=== PATIENT | male | born 1955 | race Caucasian/White ===

== ENCOUNTER 2019-04-09 07:45 | Outpatient (RCR) | payer OTHER | END 2019-04-11 | LOC: M PT 07:45 | PROVIDERS: ATTEND Internal Medicine | DX: Z51.89 Encounter for other specified aftercare (principal); M25.561 Pain in right knee ==

== ENCOUNTER → 2021-05-12 | Outpatient (CLI) | payer MEDICARE ==
[~2021-05-12] MED LIST: ALLO100T PO; AMLO1TAB24 PO; ASPI81CH33 PO; D31000TA2 PO; LISI40TA4 PO; ROSU10TA6 PO; TEST1GEL10 TD; TRAM50TA2 PO
== END ==
LOC: M LABSMTC 09:13
PROVIDERS: ATTEND Anesthesiology
DX: Z01.818 Encounter for other preprocedural examination (principal); Z11.52 Encounter for screening for COVID-19

== ENCOUNTER 2021-05-17 08:28 | Day surgery (SDC) | payer OTHER ==
[~2021-05-17] VITALS: Ht 177.8 cm; Wt 89.8 kg
[~2021-05-17 08:28] MED LIST changes: +NS 1,000 ML IV ONE
[2021-05-17] MEDS ORDERED: propofoL 200 MG/20 ML VIAL As Ordered ONE ×3 (10:03→10:52)
--- NOTE | 2021-05-17 11:15 | ROOR ---
Patient Name: Cory Shelby Procedure Date: 05/17/2021 10:16 AM Date of : 1955 Age: 66 Room: [facility] Gender: Male Note Status: Finalized Procedure: Colonoscopy Indications: High risk colon cancer surveillance: Personal history of colonic polyps Providers: Ramiro Varner MD Referring MD: Bunny Johnson MD Requesting Provider: Medicines: Monitored Anesthesia Care Complications: No immediate complications. Procedure: Pre-Anesthesia Assessment: - Prior to the procedure, a History and Physical was performed, and patient medications and allergies were reviewed. The patient is competent. The risks and benefits of the procedure and the sedation options and risks were discussed with the patient. All questions were answered and informed consent was obtained. Patient identification and proposed procedure were verified by the physician, the nurse and the anesthesiologist in the endoscopy suite. Mental Status Examination: alert and oriented. Airway Examination: normal oropharyngeal airway and neck mobility. Respiratory Examination: clear to auscultation. CV Examination: normal. Prophylactic Antibiotics: The patient does not require prophylactic antibiotics. Prior Anticoagulants: The patient has taken no previous anticoagulant or antiplatelet agents except for aspirin. ASA Grade Assessment: III - A patient with severe systemic disease. After reviewing the risks and benefits, the patient was deemed in satisfactory condition to undergo the procedure. The anesthesia plan was to use monitored anesthesia care (MAC). Immediately prior to administration of medications, the patient was re-assessed for adequacy to receive sedatives. The heart rate, respiratory rate, oxygen saturations, blood pressure, adequacy of pulmonary ventilation, and response to care were monitored throughout the procedure. The physical status of the patient was re-assessed after the procedure. The Colonoscope was introduced through the anus and advanced to the cecum, identified by appendiceal orifice and ileocecal valve. The colonoscopy was technically difficult and complex due to significant looping and a tortuous colon; towards the end was not holding air enough to maintain an adequate view of the colon. The quality of the bowel preparation was good. Findings: Hemorrhoids were found on perianal exam. Five sessile polyps were found in the transverse colon, proximal transverse colon and cecum. The polyps were 2 to 5 mm in size. These polyps were removed with a cold snare. Resection and retrieval were complete. Estimated blood loss was minimal. Two sessile polyps were found in the sigmoid colon and descending colon. The polyps were 2 to 4 mm in size. These polyps were removed with a cold snare. Resection and retrieval were complete. Estimated blood loss was minimal. A few small-mouthed diverticula were found in the sigmoid colon. The retroflexed view of the distal rectum and anal verge was normal and showed no anal or rectal abnormalities. Impression: - Hemorrhoids found on perianal exam. - Five 2 to 5 mm polyps in the transverse colon, in the proximal transverse colon and in the cecum, removed with a cold snare. Resected and retrieved. - Two 2 to 4 mm polyps in the sigmoid colon and in the descending colon, removed with a cold snare. Resected and retrieved. - Mild diverticulosis in the sigmoid colon. - The distal rectum and anal verge are normal on retroflexion view. Recommendation: - Discharge patient to home (ambulatory). - Repeat colonoscopy in 3 years for surveillance. - Await pathology results. Procedure Code(s): --- Professional --- 19938, Colonoscopy, flexible; with removal of tumor(s), polyp(s), or other lesion(s) by snare technique Diagnosis Code(s): --- Professional --- Z86.010, Personal history of colonic polyps K64.9, Unspecified hemorrhoids K63.5, Polyp of colon K57.30, Diverticulosis of large intestine without perforation or abscess without bleeding CPT copyright 2019 [employer]. All rights reserved. The codes documented in this report are preliminary and upon professor of physical education review may be revised to meet current compliance requirements. Ramiro Varner MD Ramiro Varner MD 05/17/2021 11:15:44 AM Electronically signed by Ramiro Varner MD Number of Addenda: 0 Note Initiated On: 05/17/2021 10:16 AM Estimated Blood Loss: Estimated blood loss was minimal.
[2021-05-17 11:40] VITALS: BP 110/67
== END 2021-05-17 11:50 | disposition home or self-care (01) ==
LOC: M OPP 08:28
PROVIDERS: ATTEND Surgery
DX: Z12.11 Encounter for screening for malignant neoplasm of colon (principal); Z86.010 Personal history of colon polyps; K63.5 Polyp of colon; K57.30 Diverticulosis of large intestine without perforation or abscess without bleeding; K64.8 Other hemorrhoids; Z79.82 Long term (current) use of aspirin; Z79.891 Long term (current) use of opiate analgesic; Z79.899 Other long term (current) drug therapy

== ENCOUNTER → 2023-02-02 | Outpatient (CLI) | payer MEDICARE, OTHER ==
[~2023-02-02] MED LIST changes: -D31000TA2 PO; -NS 1,000 ML IV ONE; +VITA100093 PO
== END ==
LOC: M SLEEP 20:00
PROVIDERS: ATTEND Internal Medicine
DX: G47.33 Obstructive sleep apnea (adult) (pediatric) (principal)

== ENCOUNTER → 2023-03-19 | Outpatient (CLI) | payer OTHER | LOC: M SLEEP 20:00 | PROVIDERS: ATTEND Internal Medicine | DX: G47.33 Obstructive sleep apnea (adult) (pediatric) (principal) ==

== ENCOUNTER → 2023-09-20 | Outpatient (CLI) | payer OTHER ==
[~2023-09-20] MED LIST changes: +ISOVUE-370 76% 100ML VIAL As Ordered ONE
== END ==
LOC: M RAD 08:53
PROVIDERS: ATTEND Internal Medicine
DX: N18.2 Chronic kidney disease, stage 2 (mild) (principal); I71.40 Abdominal aortic aneurysm, without rupture, unspecified; E27.9 Disorder of adrenal gland, unspecified; N28.1 Cyst of kidney, acquired; N28.89 Other specified disorders of kidney and ureter
CPT/HCPCS: 71260; 76775; Q9967

== ENCOUNTER → 2024-02-27 | Outpatient (CLI) | payer OTHER ==
[~2024-02-27] MED LIST changes: -ISOVUE-370 76% 100ML VIAL As Ordered ONE; -ROSU10TA6 PO; +ROSU10TA61 PO; +TEST10GE TD; -TEST1GEL10 TD
== END ==
LOC: M RAD 11:18
PROVIDERS: ATTEND Internal Medicine
DX: N18.30 Chronic kidney disease, stage 3 unspecified (principal)